=== PATIENT | male | born 1960 | race Caucasian/White ===

== ENCOUNTER 2021-02-09 13:35 | Emergency (ER) | payer OTHER ==
[2021-02-09] MEDS ORDERED: Sodium Chloride 0.9% 10 ML Syringe FLUSH PRN (13:49)
[2021-02-09 14:05] LABS: PTT,PARTIAL THROMBOPLSTIN TIME 24.6 SEC (25.6-32.8)
[2021-02-09 14:07] LABS: CHLORIDE,CL 107 mmol/L (98-107); SODIUM,NA 143 mmol/L (136-145)
[2021-02-09 14:11] LABS: ANION GAP 15.9 mmol/L (5-15)
[2021-02-09 14:33] LABS: BARBITURATE SCREEN,URINE NEGATIVE (NEGATIVE); BENZODIAZEPINES SCREEN,URINE NEGATIVE (NEGATIVE); METHAMPHETAMINE SCREEN, URINE POSITIVE (NEGATIVE); THC SCREEN,URINE 50 NG/ML NEGATIVE (NEGATIVE)
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
[2021-02-09] MEDS ORDERED: Ketorolac 30 MG/ML SDV IVPUSH ONE (15:04)
--- NOTE | 2021-02-14 17:16 | PCM.EKG ---
#1 Interpretation EKG Date: 02/09/21 Time: 13:41 Rhythm: NSR Rate (Beats/Min): 98 [place]: LAD-Left [place] Deviation P-Wave: Present QRS: Normal ST-T: Normal QT: Normal
== END 2021-02-09 17:14 | disposition home or self-care (01) ==
LOC: VM.ED 13:35
DX: S40.811A Abrasion of right upper arm, initial encounter (principal); F15.90 Other stimulant use, unspecified, uncomplicated; V89.2XXA Person injured in unspecified motor-vehicle accident, traffic, initial encounter
CPT/HCPCS: 36415; 71046; 73030-RT; 80053; 80305-QW; 80307; 81003; 83605; 83690; 85025; 85610; 85730; 93005; 96374; 99284; 99284-25; J1885